=== PATIENT | female | born 1975 | race Caucasian/White ===

== ENCOUNTER 2016-09-02 22:40 | Emergency (ER) | payer BC ==
[~2016-09-02] VITALS: Ht 165.1 cm; Wt 86.2 kg
--- NOTE | 2016-09-02 23:15 | NUR ---
To bed 40 yo female bibself with right upper quadrant pain at 8/10. Patient is alert oriented x4, ambulatory. No s/s of acute distress noted. Skin warm and dry to touch. Gowned. Awaiting for er md gregg.
[2016-09-02] MEDS ORDERED: IV NS 0.9% 500 ML IV ONE (23:29)
[2016-09-02] MEDS ORDERED: IV SET PRIMARY 1 EA INFUS.SET MC ONE (23:29)
[2016-09-02] MEDS ORDERED: MORPHINE SULFATE INJ 4 MG/ML DISP.SYRIN ONE (23:29)
[2016-09-02] MEDS ORDERED: ONDANSETRON HCL/PF 4 MG/2 ML VIAL ONE (23:29)
[2016-09-02] MEDS ORDERED: ONDANSETRON HCL/PF 4 MG/2 ML VIAL IVP ONE (23:30)
[2016-09-02] MEDS ORDERED: IV NS 0.9% 500 ML BAG IV ONE (23:30)
[2016-09-02] MEDS ORDERED: MORPHINE SULFATE INJ 2 MG/ML DISP.SYRIN IV ONE (23:30)
[2016-09-02 23:55] LABS: APPEARANCE,URINE CLEAR (CLEAR); BILIRUBIN,URINE NEGATIVE (NEGATIVE); BLOOD, URINE TRACE Ery/uL (NEGATIVE); COLOR,URINE YELLOW (YELLOW); KETONES,URINE NEGATIVE (NEGATIVE); LEUKOCYTE ESTERASE ,URINE NEGATIVE (NEGATIVE); NITRITE, URINE NEGATIVE (NEGATIVE); PH,URINE 6.5 (5.0-8.0); PROTEIN,URINE 2+ mg/dl (NEGATIVE); UGLUCOSE NEGATIVE (NEGATIVE); UROBILINOGEN,URINE 0.2 EU/dL (0.2)
--- NOTE | 2016-09-02 23:58 | NUR ---
started a saline lock 20g on the left hand, blood drawn and sent to lab.
--- NOTE | 2016-09-03 00:10 | NUR ---
jamaal at bedside.
[2016-09-03 00:30] LABS: BASOPHILS # (AUTO) 0.1 /CMM (0.0-0.2); BASOPHILS % (AUTO) 0.6 % (0.0-2.0); EOSINOPHILS # (AUTO) 0.1 /CMM (0.0-0.7); EOSINOPHILS % (AUTO) 0.8 % (0.0-6.0); HEMATOCRIT 35 % (33-45); HEMOGLOBIN 11.2 g/dL (11.5-14.8); LYMPHOCYTES # (AUTO) 1.8 /CMM (0.8-4.8); LYMPHOCYTES % (AUTO) 15.4 % (20.0-44.0); MEAN CORPUSCULAR HEMOGLOBIN 25 PG (26.0-33.0); MEAN CORPUSCULAR HGB CONC 33 g/dl (31.0-36.0); MEAN CORPUSCULAR VOLUME 76 fL (82-100); MONOCYTES # (AUTO) 0.3 /CMM (0.1-1.30); MONOCYTES % (AUTO) 2.5 % (2.0-12.0); NEUTROPHILS # (AUTO) 9.7 /CMM (1.8-8.9); NEUTROPHILS % (AUTO) 80.7 % (43.0-81.0); PLATELET COUNT (AUTO) 295 /CMM (150-450); RDW COEFFICIENT OF VARIATION 15.9 (11.5-15.0); RED BLOOD CELL COUNT(AUTO) 4.54 MIL/uL (4.0-5.2)
[2016-09-03 00:45] LABS: BACTERIA,URINE 3+ /HPF (None Seen); SQUAMOUS EPITHELIAL CELL,UR Moderate /HPF (None Seen)
[2016-09-03 00:46] LABS: ADD URINE CULTURE YES; MUCUS,URINE Few /LPF (None Seen); RBC,URINE 0-5 /HPF (0-2)
[2016-09-03 00:54] LABS: ALBUMIN 3.2 g/dL (3.4-5.0); BILIRUBIN,TOTAL 0.2 mg/dL (0.2-1.0); CALCIUM, SERUM 8.9 mg/dL (8.5-10.1); CREATININE 0.9 mg/dL (0.6-1.3); POTASSIUM 3.9 mmol/L (3.5-5.1); TOTAL PROTEIN, SERUM 6.9 g/dL (6.4-8.2)
--- NOTE | 2016-09-03 01:45 | NUR ---
Patient reported relief from pain. No further complaints. IV removed. Catheter intact and site benign. Pressure and 4x4 applied to site. No bleeding noted. Patient discharged to home in stable condition. Written and verbal after care instructions given. Patient verbalizes understanding of instruction. Patient is ambulatory with steady gait. Instructed not to drive.
[2016-09-03 01:50] VITALS: BP 140/89
== END 2016-09-03 01:45 | disposition home or self-care (01) ==
LOC: ER 22:52
DX: K21.9 Gastro-esophageal reflux disease without esophagitis (principal)
CPT/HCPCS: 36415; 76705-TC; 80048-TC; 80076-TC; 81000-TC; 83690-TC; 85025-TC; 87086-TC; 87186-TC; A4606; J2270; J2405; J7040; Z7610